=== PATIENT | female | born 1975 | race Caucasian/White ===

== ENCOUNTER 2021-01-09 20:15 | Emergency (ER) | payer OTHER ==
[~2021-01-09] VITALS: Ht 162.6 cm; Wt 94.3 kg
[2021-01-09] MEDS ORDERED: OMEPRAZOLE20 MG PO (23:01)
[2021-01-09] MEDS ORDERED: METOPROLOL SUC100 MG PO (23:01)
[2021-01-09] MEDS ORDERED: FLUTICASONE PRO16 GM NAS (23:02)
== END 2021-01-09 23:58 | disposition home or self-care (01) ==
LOC: ED 20:15
DX: M79.672 Pain in left foot (principal); I10 Essential (primary) hypertension; K21.9 Gastro-esophageal reflux disease without esophagitis; Z79.899 Other long term (current) drug therapy; Z88.5 Allergy status to narcotic agent; Z88.8 Allergy status to other drugs, medicaments and biological substances
CPT/HCPCS: 73630; 99283-25